=== PATIENT | female | born 1940 | race Caucasian/White ===

== ENCOUNTER 2018-10-23 12:10 | Day surgery (SDC) | payer MEDICARE, BC ==
[~2018-10-23] VITALS: Ht 147.3 cm; Wt 107.3 kg
[~2018-10-23 12:10] MED LIST: ALBU8.5H8 IH; ASCO500C15 PO; ASPI-1265 PO; ATOR10TA70 PO; BIOT1CAP3 PO; BUDE10.2 INH; CARB15DR4 OP; CHOL10002 PO; CYAN-19 PO; DEXT20TA6 PO; DOCU50CA8 PO; FOLI0.4T2 PO; FURO-149 PO; GUAI1TBM19 PO; HYDR200T84 PO; HYPR25DR2 OP; LEVO150T PO; LYSI500T40 PO; MAGN400T6 PO; MET0.75G TP; METH2.5T PO; MULT-1096 PO; NEBI5TAB10 PO; OMEP40CA37 PO; PILO5TAB PO; POTA10TA36 PO; SALT PO; SPIR25TA5 PO; TRAM50TA2 PO; VITA-268 PO; VITA80008 PO; [UNRECOGNIZED DRUG - CODE]
[2018-10-23 12:24] VITALS: BP 160/79
[2018-10-23] MEDS ORDERED: METH2.5T PO (12:42)
[2018-10-23] MEDS ORDERED: ESOM40CA30 PO (12:43)
[2018-10-23] MEDS ORDERED: fentaNYL/PF 50MCG/1 ML 2ML syringe ONE (12:48)
[2018-10-23] MEDS ORDERED: MIDAZolam 5mg/5ml vial ONE (12:49)
[2018-10-23 13:42] VITALS: BP 116/55
[2018-10-23 13:52] VITALS: BP 128/59
[2018-10-23 14:02] VITALS: BP 129/44
[2018-10-23 14:12] VITALS: BP 127/68
== END 2018-10-23 14:30 | disposition home or self-care (01) ==
LOC: GI LAB 12:10
PROVIDERS: ATTEND Internal Medicine Gastroenterology
DX: Z12.11 Encounter for screening for malignant neoplasm of colon (principal); K57.30 Diverticulosis of large intestine without perforation or abscess without bleeding; K64.8 Other hemorrhoids; K63.89 Other specified diseases of intestine; I13.0 Hypertensive heart and chronic kidney disease with heart failure and stage 1 through stage 4 chronic kidney disease, or unspecified chronic kidney disease; E11.22 Type 2 diabetes mellitus with diabetic chronic kidney disease; N18.3 Chronic kidney disease, stage 3 (moderate); I50.9 Heart failure, unspecified; E78.5 Hyperlipidemia, unspecified; J44.9 Chronic obstructive pulmonary disease, unspecified; G47.33 Obstructive sleep apnea (adult) (pediatric); K21.9 Gastro-esophageal reflux disease without esophagitis; M06.9 Rheumatoid arthritis, unspecified; Z90.49 Acquired absence of other specified parts of digestive tract; Z87.01 Personal history of pneumonia (recurrent); Z87.09 Personal history of other diseases of the respiratory system; Z86.69 Personal history of other diseases of the nervous system and sense organs; Z86.14 Personal history of Methicillin resistant Staphylococcus aureus infection; Z90.710 Acquired absence of both cervix and uterus; Z88.3 Allergy status to other anti-infective agents; Z88.2 Allergy status to sulfonamides; Z88.5 Allergy status to narcotic agent; Z79.82 Long term (current) use of aspirin; Z86.79 Personal history of other diseases of the circulatory system; Z79.899 Other long term (current) drug therapy; Z98.890 Other specified postprocedural states; Z82.49 Family history of ischemic heart disease and other diseases of the circulatory system; Z83.6 Family history of other diseases of the respiratory system
CPT/HCPCS: G0121; G0500; J2250; J3010; J7030; 45378; 99152; 99153; A4620

== ENCOUNTER 2019-08-15 17:22 | Emergency (ER) | payer MEDICARE, OTHER ==
[~2019-08-15] VITALS: Ht 147.3 cm; Wt 95.0 kg
[~2019-08-15 17:22] MED LIST changes: -ASCO500C15 PO; -CARB15DR4 OP; -CYAN-19 PO; +CYAN100019 PO; +ESOM40CA49 PO; -GUAI1TBM19 PO; -HYDR200T84 PO; -HYPR25DR2 OP; -LYSI500T40 PO; +MAGN400T28 PO; -MAGN400T6 PO; -OMEP40CA37 PO; -POTA10TA36 PO; -SALT PO; -TRAM50TA2 PO; -[UNRECOGNIZED DRUG - CODE]
[2019-08-15 17:47] VITALS: BP 145/56
== END 2019-08-15 19:29 | disposition home or self-care (01) ==
LOC: ER 17:23
DX: L02.211 Cutaneous abscess of abdominal wall (principal); J44.9 Chronic obstructive pulmonary disease, unspecified; I13.0 Hypertensive heart and chronic kidney disease with heart failure and stage 1 through stage 4 chronic kidney disease, or unspecified chronic kidney disease; E11.22 Type 2 diabetes mellitus with diabetic chronic kidney disease; N18.3 Chronic kidney disease, stage 3 (moderate); I50.9 Heart failure, unspecified; Z48.00 Encounter for change or removal of nonsurgical wound dressing; Z88.2 Allergy status to sulfonamides; Z88.6 Allergy status to analgesic agent; Z79.899 Other long term (current) drug therapy; Z79.82 Long term (current) use of aspirin
CPT/HCPCS: 99282; 99283